=== PATIENT | female | born 1950 | race Caucasian/White ===

== ENCOUNTER 2017-06-13 07:58 | Emergency (ER) | payer OTHER ==
[2017-06-13 08:04] VITALS: BMI 28.1
[2017-06-13 08:13] VITALS: TEMP 97.6
[2017-06-13] MEDS ORDERED: Sodium Chloride 0.9% 1,000 ML IV ONE (08:22)
[2017-06-13] MEDS ORDERED: Sodium Chloride 0.9% 1,000 ML ONE (08:30)
--- NOTE | 2017-06-13 08:31 | C.PDOC ---
History Of Present Illness 65 y/o female with past medical history of HTN brought by EMS with complaints of intermittent sharp headache for 3 days. Patient reports not taking her blood pressure medication a day prior to symptoms developing but has been compliant since. Patient states she took blood pressure medication today and vomited. Patient was on her way to work when symptoms worsen and took 600mg ibuprofen which mildly resolved headache. Patient admits to lack of sleeping and denies dizziness, vision changes, injury or any other complaints at this time. Time Seen by Provider: 06/13/17 08:15 Chief Complaint (Nursing): High Blood Pressure History Per: Patient History/Exam Limitations: no limitations Onset/Duration Of Symptoms: Days, Intermittent Episodes Current Symptoms Are (Timing): Still Present Associated Symptoms: Headache Past Medical History Reviewed: Historical Data, Nursing Documentation, Vital Signs Vital Signs: Last Vital Signs Temp 97.6 F 06/13/17 08:00 Pulse 60 06/13/17 09:55 Resp 16 06/13/17 09:55 BP 139/82 06/13/17 09:55 Pulse Ox 97 06/13/17 09:55 - Medical History PMH: HTN, Hypercholesterolemia Surgical History: Appendectomy (2009) Family History: States: No Known Family Hx - Social History Hx Alcohol Use: No Hx Substance Use: No - Immunization History Hx Tetanus Toxoid Vaccination: No Hx Influenza Vaccination: No Hx Pneumococcal Vaccination: No Review Of Systems Constitutional: Negative for: Fever, Chills Eyes: Negative for: Vision Change Cardiovascular: Negative for: Chest Pain, Palpitations Respiratory: Negative for: Shortness of Breath Gastrointestinal: Negative for: Nausea, Vomiting, Abdominal Pain Musculoskeletal: Negative for: Neck Pain Skin: Negative for: Rash Neurological: Positive for: Headache. Negative for: Weakness, Numbness, Dizziness Physical Exam - Physical Exam Appears: Non-toxic, No Acute Distress Skin: Warm, Dry, No Rash Head: Atraumatic, Normacephalic Eye(s): bilateral: Normal Inspection, PERRL, EOMI, Other (No nystagmus) Nose: Normal Oral Mucosa: Moist Neck: Normal ROM, Supple Chest: Symmetrical Cardiovascular: Rhythm Regular Respiratory: Normal Breath Sounds, No Accessory Muscle Use, No Rales, No Rhonchi , No Wheezing Gastrointestinal/Abdominal: Normal Exam, Soft, No Tenderness Extremity: Bilateral: Atraumatic, No Pedal Edema, Normal Color And Temperature, Normal ROM Pulses: Right Radial: Normal Neurological/Psych: Oriented x3, Normal Speech, Normal Cranial Nerves, No Cerebellar Signs, Normal Motor, Normal Sensation Gait: Steady ED Course And Treatment - Laboratory Results Result Diagrams: 06/13/17 08:46 06/13/17 08:46 Lab Interpretation: No Acute Changes ECG: Interpreted By Me, Viewed By Me ECG Rhythm: Sinus Bradycardia ECG Interpretation: No Acute Changes Rate From EC (bpm) O2 Sat by Pulse Oximetry: 98 (RA) Pulse Ox Interpretation: Normal - CT Scan/US Head w/o contrast Other Rad Studies (CT/US): Interpreted By Me, Read By Radiologist CT/US Interpretation: PROCEDURE: CT HEAD WITHOUT CONTRAST. HISTORY: right sided headache. COMPARISON: None available. TECHNIQUE: Axial computed tomography images were obtained through the head/brain without intravenous contrast. Radiation dose: Total exam DLP = 705.10 mGy-cm. This CT exam was performed using one or more of the following dose reduction techniques: Automated exposure control, adjustment of the mA and/or kV according to patient size, and/or use of iterative reconstruction technique. FINDINGS: HEMORRHAGE: No intracranial hemorrhage. BRAIN: Expansion of the ventricular sulcal and cisternal spaces appreciated compatible diffuse cerebral atrophy. Normal jordan- white matter differentiation is appreciated as well as overall density. No edema is appreciated there is no mass effect. The midline brain and appears unremarkable. No suspicious extra-axial fluid collection is identified. VENTRICLES: Unremarkable. No hydrocephalus. CALVARIUM: Unremarkable. PARANASAL SINUSES: Unremarkable as visualized. No significant inflammatory changes. MASTOID AIR CELLS: Unremarkable as visualized. No inflammatory changes. OTHER FINDINGS: None. IMPRESSION: Mild age-related diffuse cerebral atrophy is appreciated. Unenhanced head CT is otherwise unremarkable diffusely. Medical Decision Making Medical Decision Making: Impression: headache, HTN Plan:CT scan Head, Blood work [place]: Labs reviewed and unremarkable. Head CT shows age related atrophy, no other acute abnormality. On re-eval patient reports feeling much better, no longer having headache or nausea. She denies any dizziness or vision changes. No neuro deficits. Patient stable for discharge and instructed to follow up with PCP Disposition Counseled Patient/Family Regarding: Studies Performed, Diagnosis, Need For Followup, Rx Given - Disposition Referrals: Ana M Cabello MD [Staff Provider] - Disposition: HOME/ ROUTINE Disposition Time: 09:43 Condition: STABLE Additional Instructions: Follow up with your primary medical doctor or clinic in 2-5 days for further evaluation. Take your usual medications as prescribed. Take Fioricet as needed for headache. Return to the emergency department at any time if symptoms persist or worsen. 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 - Scribe Statement The provider has reviewed the documentation as recorded by the Ivan Willis All medical record entries made by the Anaibtheresa were at my direction and personally dictated by me. I have reviewed the chart and agree that the record accurately reflects my personal performance of the history, physical exam, medical decision making, and the department course for this patient. I have also personally directed, reviewed, and agree with the discharge instructions and disposition.
[2017-06-13 08:53] LABS: EOS # 0.1 K/uL (0.0-0.7); EOS % 3.6 % (0.0-4.0); HEMATOCRIT 45.2 % (34.0-47.0); LYMPH # 1.7 K/uL (1.0-4.3); LYMPH % 41.1 % (20.0-40.0); MEAN CELL VOLUME 89.4 fL (81.0-99.0); MEAN CORPUSCULAR HEMOGLOBIN 29.7 pg (27.0-31.0); MEAN CORPUSCULAR HGB CONC 33.2 g/dL (33.0-37.0); MEAN PLATELET VOLUME 8.9 fL (7.2-11.7); MONO # 0.3 K/uL (0.0-0.8); MONO % 7.6 % (0.0-10.0); NRBC % 0.1 % (0.0-2.0); RED CELL DISTRIBUTION WIDTH 13.9 % (11.5-14.5); WHITE BLOOD COUNT 4.1 K/uL (4.8-10.8)
[2017-06-13 08:58] LABS: CHLORIDE 95 mmol/L (98-107)
[2017-06-13 08:59] LABS: POTASSIUM 3.7 mmol/L (3.6-5.2); SODIUM 133 mmol/L (132-148)
[2017-06-13 09:01] LABS: AST/SGOT 42 U/L (14-36); BILIRUBIN,TOTAL 0.9 mg/dL (0.2-1.3); CARBON DIOXIDE 26 mmol/L (22-30); GFR AFRICAN-AMERICAN > 60
[2017-06-13 09:02] LABS: ALB/GLOB RATIO 1.1 (1.0-2.1); ALKALINE PHOSPHATASE 47 U/L (38-126); ALT/SGPT 80 U/L (9-52); BLOOD UREA NITROGEN 20 mg/dL (7-17); CALCIUM 9.7 mg/dl (8.6-10.4); GLUCOSE,RANDOM 121 mg/dL (65-105); TOTAL PROTEIN 9.3 g/dL (6.3-8.3)
--- NOTE | 2017-06-13 09:23 | CT ---
PROCEDURE: CT HEAD WITHOUT CONTRAST. HISTORY: right sided headache COMPARISON: None available. TECHNIQUE: Axial computed tomography images were obtained through the head/brain without intravenous contrast. Radiation dose: Total exam DLP = 705.10 mGy-cm. This CT exam was performed using one or more of the following dose reduction techniques: Automated exposure control, adjustment of the mA and/or kV according to patient size, and/or use of iterative reconstruction technique. FINDINGS: HEMORRHAGE: No intracranial hemorrhage. BRAIN: Expansion of the ventricular sulcal and cisternal spaces appreciated compatible diffuse cerebral atrophy. Normal jordan-white matter differentiation is appreciated as well as overall density. No edema is appreciated there is no mass effect. The midline brain and appears unremarkable. No suspicious extra-axial fluid collection is identified. VENTRICLES: Unremarkable. No hydrocephalus. CALVARIUM: Unremarkable. PARANASAL SINUSES: Unremarkable as visualized. No significant inflammatory changes. MASTOID AIR CELLS: Unremarkable as visualized. No inflammatory changes. OTHER FINDINGS: None. IMPRESSION: Mild age-related diffuse cerebral atrophy is appreciated. Unenhanced head CT is otherwise unremarkable diffusely.
[2017-06-13 09:56] VITALS: BP 139/82; PULSE 60; RESP 16
[2017-06-13 14:23] VITALS: O2SAT 98
--- NOTE | 2017-06-15 17:44 | CARD ---
APPROVED REPORT EKG Measurement Heart [id number] <Conclusion> Sinus bradycardia Minimal voltage criteria for LVH, may be normal variant Borderline ECG
== END 2017-06-13 09:56 | disposition home or self-care (01) ==
LOC: C.ER 07:58
DX: I10 Essential (primary) hypertension (principal); R51 Headache; E78.00 Pure hypercholesterolemia, unspecified
CPT/HCPCS: 70450; 80053; 85025; 93005; 96361; 96365; 99285; J2765; J7040